=== PATIENT | male | born 1950 | race Caucasian/White ===

== ENCOUNTER 2021-06-14 19:45 | Inpatient (IN) | payer OTHER, MEDICARE ==
[~2021-06-14 19:45] MED LIST: Iopamidol-370 76% 500 ML 1 ML ONE
[2021-06-14] MEDS ORDERED: Lidocaine 1% (PF) 30 ML VIAL ONE (19:54)
[2021-06-14] MEDS ORDERED: Rocuronium Bromide 10 MG/ML (10ML VIAL) ONE ×2 (19:55→20:55)
[2021-06-14] MEDS ORDERED: Calcium Chloride 1 GM/10 ML Abboject SYRINGE ONE ×2 (19:57→20:39)
[2021-06-14 20:03] LABS: #Basophils 0.1 thou/uL (0.0-0.2); #Eosinphils 0.1 thou/uL (0.0-0.7); #Lymphocytes 3.3 thou/uL (1.20-3.40); #Monocytes 0.7 thou/uL (0.11-0.59); #Neutrophils 6.3 thou/uL (1.40-6.50); %Basophils 0.8 % (0.0-1.0); %Eosinophils 0.9 % (0.0-10.0); %Lymphocytes 31.2 % (21.0-51.0); %Monocytes 6.5 % (0.0-10.0); %Neutrophils 60.6 % (42.0-75.0); Hemoglobin 14.4 g/dL (14.0-18.0); Mean Platelet Volume 7.4 fL (7.4-10.4); Platelet Count 212 thou/uL (130-400); RBC Distribution Width 12.1 % (11.5-14.5); Red Blood Cell (RBC) Count 4.23 mill/uL (4.70-6.10); White Blood Cell (WBC) Count 10.4 thou/uL (4.8-10.8)
[2021-06-14] MEDS ORDERED: Ketamine 50 MG/ML (10ML VIAL) ONE ×2 (20:08→20:30)
[2021-06-14] MEDS ORDERED: Fentanyl CADD 100 ML IV SCH (20:15)
[2021-06-14 20:17] LABS: INR-International Normal Ratio 1.2; Prothrombin Time 15.6 sec (12.0-14.7)
[2021-06-14 20:18] LABS: Acetaminophen Less than 6.0 mcg/mL (10.0-30.0); Alcohol 170 mg/dL (Less than 10); Salicylate Less than 8.0 mg/dL (15.0-30.0)
[2021-06-14 20:20] LABS: ALT (SGPT) 43 U/L (8-55); AST (SGOT) 47 U/L (5-34); Albumin 3.4 g/dL (3.4-4.8); Alkaline Phosphatase 45 U/L (40-110); Anion Gap 22 mmol/L (10-20); BUN (Urea Nitrogen) 9 mg/dL (8.4-25.7); Bilirubin, Total 0.4 mg/dL (0.2-1.2); Calc. Creatinine Clearance 0 mL/min (70-130); Calcium 8.1 mg/dL (7.8-10.44); Carbon Dioxide 13 mmol/L (23-31); Chloride 110 mmol/L (98-107); Globulin 2.6 g/dL (2.4-3.5); Glucose 201 mg/dL (80-115); Potassium 3.5 mmol/L (3.5-5.1); Sodium 141 mmol/L (136-145)
[2021-06-14] MEDS ORDERED: Sterile Water 10 ML ONE (20:28)
[2021-06-14] MEDS ORDERED: CEFAZOLIN 1 GM VIAL ONE (20:28)
[2021-06-14] MEDS ORDERED: Boostrix 0.5 ML (Tdap) VIAL ONE ×2 (20:28→20:29)
[2021-06-14] MEDS ORDERED: Fentanyl 250 MCG/5 ML VIAL ONE (20:30)
[2021-06-14] MEDS ORDERED: Phenylephrine 10 MG/ML VIAL ONE ×2 (20:30→20:39)
[2021-06-14] MEDS ORDERED: Midazolam HCl 2 mg/2 ml Vial ONE ×2 (20:30→20:38)
[2021-06-14] MEDS ORDERED: Sodium Bicarb 50 MEQ/50 ML Abboject 8.4% SYRINGE ONE ×2 (20:31→20:39)
[2021-06-14] MEDS ORDERED: Norepinephrine 4 MG/4 ML VIAL ONE (20:39)
[2021-06-14] MEDS ORDERED: PHENYLEPHRINE-NS 100 MCG/ML 10 ML SYRINGE ONE (20:55)
[2021-06-14] MEDS ORDERED: Vecuronium 10 MG VIAL ONE (20:55)
[2021-06-14] MEDS ORDERED: Heparin 10,000 UNITS/ 10 ML VIAL ONE (21:04)
[2021-06-14] MEDS ORDERED: Gentamicin 80 MG/2 ML VIAL ONE (21:11)
[2021-06-14] MEDS ORDERED: Dextrose 5% in Water 1,000 ML IV PRN (21:41)
[2021-06-14] MEDS ORDERED: Dextrose 50% Abboject 50 ML SYRINGE SLOW IVP PRN (21:41)
[2021-06-14] MEDS ORDERED: Insulin Regular 300 UNITS/3 ML VIAL SC PRN (21:41)
[2021-06-14] MEDS ORDERED: Ondansetron PF 4 MG/2 ML Vial IVP PRN (21:41)
[2021-06-14] MEDS ORDERED: Propofol 1,000 MG/100 ML VIAL IV PRN (21:45)
[2021-06-14 21:55] LABS: SARS-CoV-2 NAA Rapid Test Not Detected (NotDetected)
[2021-06-14] MEDS ORDERED: Sodium Chloride 0.9% 1,000 ML IV SCH (22:00)
[2021-06-15] MEDS ORDERED: Lorazepam 2 MG/ML VIAL SLOW IVP PRN (00:39)
[2021-06-15 00:56] LABS: CO2 Tension 42.4 mmHg (35.0-45.0); Carboxyhemoglobin (COHb) 0.4 gm% (0.0-3.0); Hemoglobin (Hb) 14.2 g/dL (14.0-18.0); O2 Tension (PaO2), arterial 203.1 mmHg (> 80.0); pH, Arterial 7.31 (7.35-7.45)
[2021-06-15 00:59] LABS: Puncture Site LRA
[2021-06-15] MEDS ORDERED: Propofol 1,000 MG/100 ML VIAL IV PRN (01:00)
[2021-06-15 01:08] LABS: Hemoglobin 13.9 g/dL (14.0-18.0); Mean Corpuscular HGB CONC 33.3 g/dL (32.0-36.0); Mean Corpuscular Hemoglobin 31.1 pg (27.0-31.0); Mean Corpuscular Volume 93.4 fL (78.0-98.0); Mean Platelet Volume 7.2 fL (7.4-10.4); Platelet Count 137 thou/uL (130-400); RBC Distribution Width 14.8 % (11.5-14.5); Red Blood Cell (RBC) Count 4.47 mill/uL (4.70-6.10); White Blood Cell (WBC) Count 11.8 thou/uL (4.8-10.8)
[2021-06-15 01:16] LABS: Lactic Acid 3.5 mmol/L (0.5-2.2)
[2021-06-15 01:26] LABS: ALT (SGPT) 101 U/L (8-55); AST (SGOT) 126 U/L (5-34); Alkaline Phosphatase 43 U/L (40-110); Anion Gap 14 mmol/L (10-20); BUN (Urea Nitrogen) 8 mg/dL (8.4-25.7); Bilirubin, Total 1.2 mg/dL (0.2-1.2); Calc. Creatinine Clearance 102 mL/min (70-130); Carbon Dioxide 22 mmol/L (23-31); Chloride 112 mmol/L (98-107); Glucose 135 mg/dL (80-115); Magnesium 1.6 mg/dL (1.6-2.6); Phosphorus 4.6 mg/dL (2.3-4.7); Potassium 4.5 mmol/L (3.5-5.1); Sodium 143 mmol/L (136-145)
[2021-06-15] MEDS ORDERED: Calcium Chloride 13.6 MEQ in Sodium Chloride 0.9% 100 ML IVPB SCH (01:30)
[2021-06-15 01:52] LABS: Bacteria/HPF None Seen HPF (None Seen); Bilirubin Negative (Negative); Blood, Urine Trace (Negative); Clarity Clear (Clear); Glucose, Urine (Dipstick) Normal (Negative); Ketone, Urine Negative (Negative); Leukocyte Negative Leu/uL (Negative); Nitrite Negative (Negative); Protein, Urine (Dipstick) Negative (Neg-Trace); RBC/HPF 0-3 HPF (0-3); Specific Gravity, Urine 1.024 (1.002-1.036); Squamous Epithelial 0-3 HPF (0-3); Urobilinogen Normal mg/dL (Less than 2); WBC/HPF 0-3 HPF (0-3); pH, Urine 5.5 (5.0-9.0)
[2021-06-15 01:59] LABS: Urine Culture Reflex No No
[2021-06-15 02:00] LABS: Amphetamine Not Detected (NotDetected); Barbiturates Screen Not Detected (NotDetected); Benzodiazepine Screen Detected (NotDetected); Cocaine Metabolite Screen Not Detected (NotDetected); Methadone Not Detected (NotDetected); Methamphetamine Not Detected (NotDetected); Opiate Screen Not Detected (NotDetected); Oxycodone Screen Not Detected (NotDetected); Phencyclidine (PCP) Not Detected (NotDetected); THC/Cannabinoid Screen Not Detected (NotDetected); Tricyclic Screen Not Detected (NotDetected)
[2021-06-15] MEDS ORDERED: Sodium Chloride 0.9% 500 ML IV SCH ×2 (04:15→06:15)
[2021-06-15 05:05] VITALS: BMI 31.4
[2021-06-15 05:12] LABS: Lactic Acid 1.9 mmol/L (0.5-2.2)
[2021-06-15 06:01] LABS: #Lymphocytes 0.5 thou/uL (1.20-3.40); #Monocytes 0.9 thou/uL (0.11-0.59); #Neutrophils 8.9 thou/uL (1.40-6.50); %Basophils 0.1 % (0.0-1.0); %Eosinophils 0.2 % (0.0-10.0); %Lymphocytes 4.9 % (21.0-51.0); %Monocytes 8.3 % (0.0-10.0); %Neutrophils 86.6 % (42.0-75.0); Hemoglobin 12.6 g/dL (14.0-18.0); Mean Corpuscular HGB CONC 33.9 g/dL (32.0-36.0); Mean Corpuscular Hemoglobin 31.6 pg (27.0-31.0); Mean Corpuscular Volume 93.3 fL (78.0-98.0); Mean Platelet Volume 7.4 fL (7.4-10.4); Platelet Count 142 thou/uL (130-400); RBC Distribution Width 15.1 % (11.5-14.5); White Blood Cell (WBC) Count 10.3 thou/uL (4.8-10.8)
[2021-06-15 06:13] LABS: INR-International Normal Ratio 1.1; PTT 27.8 sec (22.9-36.1); Prothrombin Time 14.7 sec (12.0-14.7)
[2021-06-15 06:23] LABS: Anion Gap 11 mmol/L (10-20); BUN (Urea Nitrogen) 11 mg/dL (8.4-25.7); Calc. Creatinine Clearance 93 mL/min (70-130); Calcium 9.5 mg/dL (7.8-10.44); Carbon Dioxide 26 mmol/L (23-31); Chloride 112 mmol/L (98-107); Glucose 138 mg/dL (80-115); Magnesium 1.6 mg/dL (1.6-2.6); Phosphorus 4.4 mg/dL (2.3-4.7); Potassium 5.8 mmol/L (3.5-5.1); Sodium 143 mmol/L (136-145)
[2021-06-15] MEDS: Sodium Chloride 0.9% 1,000 ML IV SCH ×3 (07:50→20:13)
[2021-06-15 08:09] LABS: Actual Bicarbonate (HCO3a) 22.3 mEq/L (22-28); Base Excess (BEa) -2.3 mEq/L (-2.0 to +3.0); Calcium, Ionized (arterial) 1.26 mmol/L (1.12-1.30); Carboxyhemoglobin (COHb) 0.9 gm% (0.0-3.0); Hemoglobin (Hb) 12.6 g/dL (14.0-18.0); O2 Tension (PaO2), arterial 97.1 mmHg (> 80.0); Potassium - ABG Lab 5.63 mmol/L (3.70-5.30); pH, Arterial 7.39 (7.35-7.45)
[2021-06-15 08:12] LABS: Puncture Site LRA
[2021-06-15] MEDS: Famotidine/PF 20 mg/2ml Vial SLOW IVP SCH ×2 (09:01→20:14)
[2021-06-15] MEDS ORDERED: Magnesium Sulfate 4 GM in Sodium Chloride 0.9% 250 ML 250 ML IVPB SCH (12:00)
[2021-06-15] MEDS ORDERED: Morphine 2 MG/ML VIAL SLOW IVP PRN (14:11)
[2021-06-15] MEDS: Morphine 4 MG/ML VIAL SLOW IVP PRN ×2 (14:19→18:07)
[2021-06-16] MEDS: Morphine 4 MG/ML VIAL SLOW IVP PRN (02:28)
[2021-06-16] MEDS: Sodium Chloride 0.9% 1,000 ML IV SCH ×2 (03:08→09:44)
[2021-06-16 05:13] LABS: ALT (SGPT) 71 U/L (8-55); AST (SGOT) 84 U/L (5-34); Albumin 2.5 g/dL (3.4-4.8); Alkaline Phosphatase 40 U/L (40-110); Anion Gap 9 mmol/L (10-20); BUN (Urea Nitrogen) 11 mg/dL (8.4-25.7); Bilirubin, Total 0.8 mg/dL (0.2-1.2); Calc. Creatinine Clearance 115 mL/min (70-130); Calcium 7.5 mg/dL (7.8-10.44); Carbon Dioxide 28 mmol/L (23-31); Chloride 106 mmol/L (98-107); Globulin 1.9 g/dL (2.4-3.5); Glucose 101 mg/dL (80-115); Magnesium 1.7 mg/dL (1.6-2.6); Phosphorus 2.4 mg/dL (2.3-4.7); Potassium 4.6 mmol/L (3.5-5.1); Protein, Total 4.4 g/dL (5.8-8.1); Sodium 138 mmol/L (136-145)
[2021-06-16 06:36] LABS: #Eosinphils 0.1 thou/uL (0.0-0.7); #Neutrophils 8.3 thou/uL (1.40-6.50); %Basophils 0.1 % (0.0-1.0); %Eosinophils 0.7 % (0.0-10.0); %Monocytes 9.2 % (0.0-10.0); Anisocytosis SLIGHT = 6-15 cells (100X) (0-5/hpf); Hemoglobin 9.1 g/dL (14.0-18.0); MDiff Complete? YES; Mean Corpuscular Hemoglobin 29.4 pg (27.0-31.0); Mean Corpuscular Volume 94.7 fL (78.0-98.0); Mean Platelet Volume 8.1 fL (7.4-10.4); Platelet Count 105 thou/uL (130-400); Platelet Morphology Comment Appears Decreased; RBC Distribution Width 15.1 % (11.5-14.5); Red Blood Cell (RBC) Count 3.11 mill/uL (4.70-6.10); White Blood Cell (WBC) Count 10.3 thou/uL (4.8-10.8)
[2021-06-16] MEDS ORDERED: traMADol HCl 50 MG TAB PO PRN (09:13)
[2021-06-16] MEDS ORDERED: Ondansetron PF 4 MG/2 ML Vial IVP PRN (09:13)
[2021-06-16] MEDS ORDERED: Cyclobenzaprine 10 MG TAB PO PRN (09:13)
[2021-06-16] MEDS ORDERED: Morphine 2 MG/ML VIAL SLOW IVP PRN (09:15)
[2021-06-16] MEDS: traMADol HCl 50 MG TAB PO SCH ×3 (09:43→21:31)
[2021-06-16] MEDS: Acetaminophen 500 MG TAB PO SCH ×3 (09:43→21:32)
[2021-06-16] MEDS: Gabapentin 100 MG CAP PO SCH ×2 (16:17→21:32)
[2021-06-16] MEDS: Senokot S 8.6-50 MG TAB PO SCH (21:32)
[2021-06-17] MEDS: Sodium Chloride 0.9% 1,000 ML IV SCH (00:29)
[2021-06-17] MEDS: Acetaminophen 500 MG TAB PO SCH ×3 (03:13→17:46)
[2021-06-17] MEDS: traMADol HCl 50 MG TAB PO SCH ×4 (03:14→20:40)
[2021-06-17 06:10] LABS: #Eosinphils 0.1 thou/uL (0.0-0.7); #Lymphocytes 0.9 thou/uL (1.20-3.40); #Monocytes 0.6 thou/uL (0.11-0.59); #Neutrophils 5.9 thou/uL (1.40-6.50); %Basophils 0.1 % (0.0-1.0); %Eosinophils 1.6 % (0.0-10.0); %Lymphocytes 11.9 % (21.0-51.0); %Neutrophils 78.4 % (42.0-75.0); Hemoglobin 9.8 g/dL (14.0-18.0); Mean Corpuscular HGB CONC 33.8 g/dL (32.0-36.0); Mean Corpuscular Volume 94.8 fL (78.0-98.0); Mean Platelet Volume 7.4 fL (7.4-10.4); Platelet Count 93 thou/uL (130-400); RBC Distribution Width 14.5 % (11.5-14.5); Red Blood Cell (RBC) Count 3.07 mill/uL (4.70-6.10); White Blood Cell (WBC) Count 7.5 thou/uL (4.8-10.8)
[2021-06-17 06:20] LABS: ALT (SGPT) 60 U/L (8-55); AST (SGOT) 51 U/L (5-34); Alkaline Phosphatase 44 U/L (40-110); Anion Gap 8 mmol/L (10-20); BUN (Urea Nitrogen) 7 mg/dL (8.4-25.7); Bilirubin, Total 0.7 mg/dL (0.2-1.2); Calc. Creatinine Clearance 141 mL/min (70-130); Carbon Dioxide 27 mmol/L (23-31); Chloride 107 mmol/L (98-107); Globulin 2.1 g/dL (2.4-3.5); Glucose 93 mg/dL (80-115); Magnesium 1.9 mg/dL (1.6-2.6); Phosphorus 2.3 mg/dL (2.3-4.7); Potassium 3.9 mmol/L (3.5-5.1); Protein, Total 5.1 g/dL (5.8-8.1); Sodium 138 mmol/L (136-145)
[2021-06-17] MEDS: Senokot S 8.6-50 MG TAB PO SCH ×2 (09:21→20:40)
[2021-06-17] MEDS: Gabapentin 100 MG CAP PO SCH ×3 (09:22→20:41)
[2021-06-17] MEDS: Polyethylene Glycol 3350 17 GM Packet PO SCH (09:24)
[2021-06-17] MEDS: Enoxaparin Sodium 40 MG/0.4 ML SYRINGE SC SCH (09:37)
[2021-06-17] MEDS ORDERED: Magnesium 2 GM/50 ML 2 GM in Premix Bag 1 BAG IVPB SCH (12:30)
[2021-06-17] MEDS ORDERED: Potassium Phosphate 30 MMOL in Sodium Chloride 0.9% 500 ML IVPB SCH (12:30)
[2021-06-18] MEDS: Acetaminophen 500 MG TAB PO SCH ×5 (01:47→17:11)
[2021-06-18] MEDS: traMADol HCl 50 MG TAB PO SCH ×4 (03:00→21:18)
[2021-06-18 07:16] LABS: #Eosinphils 0.2 thou/uL (0.0-0.7); #Lymphocytes 0.9 thou/uL (1.20-3.40); #Monocytes 0.6 thou/uL (0.11-0.59); #Neutrophils 5.9 thou/uL (1.40-6.50); %Basophils 0.1 % (0.0-1.0); %Eosinophils 2.4 % (0.0-10.0); %Lymphocytes 11.8 % (21.0-51.0); %Monocytes 7.9 % (0.0-10.0); %Neutrophils 77.7 % (42.0-75.0); Hemoglobin 9.1 g/dL (14.0-18.0); Mean Corpuscular HGB CONC 31.4 g/dL (32.0-36.0); Mean Corpuscular Hemoglobin 29.8 pg (27.0-31.0); Mean Corpuscular Volume 95.1 fL (78.0-98.0); Mean Platelet Volume 7.9 fL (7.4-10.4); Platelet Count 127 thou/uL (130-400); RBC Distribution Width 14.4 % (11.5-14.5); Red Blood Cell (RBC) Count 3.05 mill/uL (4.70-6.10); White Blood Cell (WBC) Count 7.6 thou/uL (4.8-10.8)
[2021-06-18 07:40] LABS: Anion Gap 11 mmol/L (10-20); BUN (Urea Nitrogen) 6 mg/dL (8.4-25.7); Calc. Creatinine Clearance 163 mL/min (70-130); Calcium 7.9 mg/dL (7.8-10.44); Carbon Dioxide 29 mmol/L (23-31); Chloride 104 mmol/L (98-107); Glucose 95 mg/dL (80-115); Phosphorus 2.9 mg/dL (2.3-4.7); Potassium 4.2 mmol/L (3.5-5.1); Sodium 140 mmol/L (136-145)
[2021-06-18] MEDS: Enoxaparin Sodium 40 MG/0.4 ML SYRINGE SC SCH (08:49)
[2021-06-18] MEDS: Senokot S 8.6-50 MG TAB PO SCH ×2 (08:50→21:18)
[2021-06-18] MEDS: Polyethylene Glycol 3350 17 GM Packet PO SCH (08:50)
[2021-06-18] MEDS: Gabapentin 100 MG CAP PO SCH ×3 (08:50→21:19)
[2021-06-19] MEDS: traMADol HCl 50 MG TAB PO SCH ×2 (03:34→08:56)
[2021-06-19] MEDS: Acetaminophen 500 MG TAB PO SCH ×2 (06:31→11:22)
[2021-06-19 08:15] VITALS: BP 150/82; TEMP 98
[2021-06-19] MEDS: Gabapentin 100 MG CAP PO SCH (08:56)
[2021-06-19] MEDS: Enoxaparin Sodium 40 MG/0.4 ML SYRINGE SC SCH (08:56)
[2021-06-19] MEDS: Polyethylene Glycol 3350 17 GM Packet PO SCH (08:56)
[2021-06-19] MEDS: Senokot S 8.6-50 MG TAB PO SCH (08:57)
[2021-06-19] MEDS ORDERED: Gabapentin 300 MG CAP PO SCH (21:00)
== END 2021-06-19 12:00 | disposition home or self-care (01) | DRG 957 ==
LOC: ERS 19:45 → SDC/OP 21:18 → EEVIPCON 21:18 → CCU 22:00 → SURG A 06-16 10:22
PROVIDERS: ADMIT Surgery; ATTEND Surgery
PROC: 0BTF0ZZ Resection of Right Lower Lung Lobe, Open Approach (ICD-10-PCS; principal; 2021-06-14)
PROC: 0FQ20ZZ Repair Left Lobe Liver, Open Approach (ICD-10-PCS; 2021-06-14)
PROC: 0BQT0ZZ Repair Diaphragm, Open Approach (ICD-10-PCS; 2021-06-14)
PROC: 5A1935Z Respiratory Ventilation, Less than 24 Consecutive Hours (ICD-10-PCS; 2021-06-14)
PROC: 05HY33Z Insertion of Infusion Device into Upper Vein, Percutaneous Approach (ICD-10-PCS; 2021-06-14)
PROC: 0BH17EZ Insertion of Endotracheal Airway into Trachea, Via Natural or Artificial Opening (ICD-10-PCS; 2021-06-14)
PROC: 0W9930Z Drainage of Right Pleural Cavity with Drainage Device, Percutaneous Approach (ICD-10-PCS; 2021-06-14)
PROC: 0DJ08ZZ Inspection of Upper Intestinal Tract, Via Natural or Artificial Opening Endoscopic (ICD-10-PCS; 2021-06-14)
PROC: 0D9670Z Drainage of Stomach with Drainage Device, Via Natural or Artificial Opening (ICD-10-PCS; 2021-06-14)
PROC: 30233K1 Transfusion of Nonautologous Frozen Plasma into Peripheral Vein, Percutaneous Approach (ICD-10-PCS; 2021-06-14)
PROC: 30233R1 Transfusion of Nonautologous Platelets into Peripheral Vein, Percutaneous Approach (ICD-10-PCS; 2021-06-14)
PROC: 30233N1 Transfusion of Nonautologous Red Blood Cells into Peripheral Vein, Percutaneous Approach (ICD-10-PCS; 2021-06-14)
PROC: 30233M1 Transfusion of Nonautologous Plasma Cryoprecipitate into Peripheral Vein, Percutaneous Approach (ICD-10-PCS; 2021-06-14)
DX: S27.391A Other injuries of lung, unilateral, initial encounter (principal); J96.00 Acute respiratory failure, unspecified whether with hypoxia or hypercapnia; S36.114A Minor laceration of liver, initial encounter; R57.8 Other shock; S21.131A Puncture wound without foreign body of right front wall of thorax without penetration into thoracic cavity, initial encounter; J90 Pleural effusion, not elsewhere classified; N17.9 Acute kidney failure, unspecified; E87.2 Acidosis; S27.808A Other injury of diaphragm, initial encounter; Z23 Encounter for immunization; Z20.822 Contact with and (suspected) exposure to COVID-19; S27.2XXA Traumatic hemopneumothorax, initial encounter; T79.7XXA Traumatic subcutaneous emphysema, initial encounter; I10 Essential (primary) hypertension; Y90.6 Blood alcohol level of 120-199 mg/100 ml; F10.129 Alcohol abuse with intoxication, unspecified; D69.6 Thrombocytopenia, unspecified; Z78.1 Physical restraint status; Z79.899 Other long term (current) drug therapy; V49.88XA Car occupant (driver) (passenger) injured in other specified transport accidents, initial encounter; Y92.410 Unspecified street and highway as the place of occurrence of the external cause; X95.9XXA Assault by unspecified firearm discharge, initial encounter; Y92.009 Unspecified place in unspecified non-institutional (private) residence as the place of occurrence of the external cause; Z53.31 Laparoscopic surgical procedure converted to open procedure
CPT/HCPCS: 36415; 36416; 36430; 36600; 70450; 71045; 71260; 72125; 72170; 74018; 74177; 80048; 80053; 80306; 80307; 81001; 82805; 83605; 83735; 84100; 85025; 85027; 85610; 85730; 86850; 86900; 86901; 88307; 90715; 94003; 94640; G0390; J0690; J1580; J1644; J1650; J2001; J2250; J2270; J2370; J3010; J3475; J3490; J7030; J7050; J7620; P9012; P9016; P9035; P9048; P9059; Q9967; S0028; U0002